=== PATIENT | male | born 1990 | race Caucasian/White ===

== ENCOUNTER 2020-06-07 20:20 | Emergency (ER) | payer SELFPAY ==
[2020-06-07] MEDS ORDERED: Proparacaine 0.5% Ophth Soln 15 ML Bottle EYERT ONE (20:41)
--- NOTE | 2020-06-07 21:11 | EDM.PDOC ---
ED HPI GENERAL MEDICAL PROBLEM - General Chief Complaint: Eye Problems Stated Complaint: SPECK RIGHT EYE Time Seen by Provider: 06/07/20 20:45 Source of Information: Reports: Patient History Limitations: Reports: No Limitations - History of Present Illness INITIAL COMMENTS - FREE TEXT/NARRATIVE: 29-year-old male with a foreign body sensation in his right eye for the last several hours. He was sitting at home, thinks he may have brushed something out of his hair that landed in his eye and it has been irritating his eye and becoming more painful over the past few hours. No visual complaints. Onset: Sudden Duration: Hour(s): (2 to 3 hours) Location: Reports: Other (Right eye) Associated Symptoms: Reports: No Other Symptoms - Related Data Allergies Allergy/AdvReac Type Severity Reaction Status Date / Time No Known Allergies Allergy Verified 06/07/20 20:34 Home Meds: Home Meds NK [No Known Home Meds] 06/07/20 [History] Social & Family History - Tobacco Use Smoking Status *Q: Unknown Ever Smoked ED ROS GENERAL - Review of Systems Review Of Systems: See Below Constitutional: Denies: Fever, Chills HEENT: Denies: Vision Change Respiratory: Denies: Shortness of Breath GI/Abdominal: Denies: Nausea, Vomiting Neurological: Denies: Headache ED EXAM GENERAL W FULL EYE - Physical Exam Exam: See Below Exam Limited By: No Limitations General Appearance: Alert, No Apparent Distress (Uncomfortable but no distress) Eye Exam: Right Eye: Conjunctival Injection Eyelids: Right: Erythema Conjunctiva & Sclera: Right: Conjunctival Edema Cornea Exam: Right: Foreign Body (Patient has a small foreign body located at about 5:00 just off the pupil) Respiratory/Chest: No Respiratory Distress Course - Vital Signs Last Recorded V/S: Last Vital Signs Temp 97.5 F 06/07/20 20:34 Pulse 82 06/07/20 20:34 Resp 16 06/07/20 20:34 BP 122/78 06/07/20 20:34 Pulse Ox 95 06/07/20 20:34 - Orders/Labs/Meds Meds: Medications Discontinued Medications Generic Name Dose Route Start Last Admin Trade Name Freq PRN Reason Stop Dose Admin Proparacaine HCl 1 ml 06/07/20 20:41 06/07/20 20:43 Proparacaine 0.5% Ophth Soln EYERT 06/07/20 20:42 1 ml ONETIME ONE Administration - Re-Assessments/Exams Free Text/Narrative Re-Assessment/Exam: 06/07/20 21:08 After proparacaine anesthesia, fluorescein stain showed a very subtle abrasion possible over the upper right cornea, but an obvious foreign body at 5:00. Using the slit-lamp, the foreign body appeared to be a small piece of a seed or vegetation. No rust rings present. With the proparacaine soaked sterile Q-tip, I attempted to lift the foreign body at the cornea but it was stuck and needed to be lifted off with the tip of an 18-gauge needle. It was then pushed across the cornea with the Q-tip and finally removed. He will be based on gentamicin drops for the next couple of days. Departure - Departure Time of Disposition: 21:15 Disposition: Home, Self-Care 01 Clinical Impression: Foreign body in cornea, right eye, initial encounter - Discharge Information Instructions: Eye Foreign Body, [id number] Referrals: PCP,None [Primary Care Provider] - Forms: ED Department Discharge Care Plan Goals: Put 2 drops in your right eye 4 times a day for the next 3 to 4 days, you should rapidly improve and feel back to normal within just a couple of days. If still have significant issues in 24 to 48 hours, consider rechecking with optometry or return to the emergency room. Sepsis Event Note (ED) - Evaluation Sepsis Screening Result: No Definite Risk - Focused Exam Vital Signs: Vital Signs Temp Pulse Resp BP Pulse Ox 06/07/20 20:34 97.5 F 82 16 122/78 95 06/07/20 20:33 97.5 F 82 16 122/78 95
== END 2020-06-07 21:15 | disposition home or self-care (01) ==
LOC: JP.ED 20:20
DX: T15.01XA Foreign body in cornea, right eye, initial encounter (principal)
CPT/HCPCS: 65222; 99282; 99283-25